=== PATIENT | female | born 1945 | race Caucasian/White ===

== ENCOUNTER 2020-02-04 13:09 | Outpatient (CLI) | payer MEDICARE, OTHER, SELFPAY ==
--- NOTE | 2020-02-04 13:18 | XR_ITS ---
WS: [id number] Chest 2 views, 02/04/2020 Clinical Data: CHRONIC COUGH/BRONCHITIS Comparison: None. Findings: No nodules, masses or effusions are seen. The heart is normal. The pulmonary vascularity is not increased. No pneumonia or pneumothorax is seen. The aortic arch and descending aorta show mild tortuosity. XR/XR chest 2V* [id number] Impression: Atherosclerosis.
== END 2020-02-04 13:10 | disposition home or self-care (01) ==
LOC: RAD 13:17
PROVIDERS: PCP Electrodiagnostic Medicine; Visit Provider Electrodiagnostic Medicine
DX: R05 Cough (principal); J42 Unspecified chronic bronchitis; I70.90 Unspecified atherosclerosis
CPT/HCPCS: 71046

== ENCOUNTER → 2020-04-11 14:42 | Outpatient (BNVA) | payer MEDICARE, OTHER, SELFPAY | PROVIDERS: PCP Electrodiagnostic Medicine; Visit Provider Nurse Practitioner Family | DX: Z20.828 Contact with and (suspected) exposure to other viral communicable diseases (principal); J06.9 Acute upper respiratory infection, unspecified | CPT/HCPCS: 87635 ==

== ENCOUNTER 2021-06-15 02:32 | Emergency (ER) | payer MEDICARE, OTHER, SELFPAY ==
[2021-06-15 02:36] VITALS: RESP 16; BMI 33.3
--- NOTE | 2021-06-15 02:37 | XRR_ITS ---
PROCEDURE INFORMATION: Exam: XR Right Shoulder Exam date and time: 06/15/2021 2:37 AM Age: 75 years old Clinical indication: Injury or trauma; Fall; Blunt trauma (contusions or hematomas); Right; Patient HX: Patient fell this morning going down basement stairs landing onto RT side. C/O RT shoulder pain. TECHNIQUE: Imaging protocol: XR Right shoulder. Views: 2 or more views. COMPARISON: CR XR chest 2V* [id number] 02/04/2020 1:30 PM FINDINGS: Bones/joints: No acute fracture. No dislocation. Soft tissues: No radiopaque foreign body. XR/XR shoulder RT min 2V* [id number] IMPRESSION: No acute fracture.
--- NOTE | 2021-06-15 02:37 | XRR_ITS ---
PROCEDURE INFORMATION: Exam: XR Right Hip Exam date and time: 06/15/2021 2:37 AM Age: 75 years old Clinical indication: Injury or trauma; Fall; Blunt trauma (contusions or hematomas); Right; Patient HX: Patient fell this morning going down basement stairs landing onto RT side. C/O RT hip pain. TECHNIQUE: Imaging protocol: XR Right hip. Views: 2 or 3 views hip with pelvis when performed. COMPARISON: CT abdomen pelvis wo con [id number] 07/20/2016 3:40 PM FINDINGS: Bones/joints: No dislocation. No acute fracture. Soft tissues: Unremarkable. XR/XR hip RT 2-3V wo/w pel* [id number] IMPRESSION: No acute findings.
--- NOTE | 2021-06-15 02:37 | CTR_ITS ---
PROCEDURE INFORMATION: Exam: CT Cervical Spine Without Contrast Exam date and time: 06/15/2021 2:37 AM Age: 75 years old Clinical indication: Injury or trauma; Fall; Blunt trauma; Patient HX: Patient fell this morning going down basement stairs landing onto RT side. C/O RT side neck pain. TECHNIQUE: Imaging protocol: Computed tomography images of the cervical spine without contrast. Radiation optimization: All CT scans at this facility use at least one of these dose optimization techniques: automated exposure control; mA and/or kV adjustment per patient size (includes targeted exams where dose is matched to clinical indication); or iterative reconstruction. COMPARISON: CT head wo con* [id number] 06/15/2021 3:36 AM RADIATION DOSE METRICS: Total DLP (mGy-cm): 707.24 FINDINGS: Bones/joints: No acute fracture. No malalignment. Discs/Spinal canal/Neural foramina: Degenerative changes including osteophytes endplate spurring and facet hypertrophy. Findings are most prominent at C4-C5 C5-C6 and C6-C7. Lungs: Lung apices are not within the imaged field of view. Soft tissues: Unremarkable. CT/CT cervical spin wo con* [id number] IMPRESSION: No acute cervical fracture.
--- NOTE | 2021-06-15 02:37 | CTR_ITS ---
PROCEDURE INFORMATION: Exam: CT Head Without Contrast Exam date and time: 06/15/2021 2:37 AM Age: 75 years old Clinical indication: Injury or trauma; Fall; Blunt trauma (contusions or hematomas); Patient HX: Patient fell this morning going down basement stairs landing onto RT side. States hit head. C/O pain. TECHNIQUE: Imaging protocol: Computed tomography of the head without contrast. Radiation optimization: All CT scans at this facility use at least one of these dose optimization techniques: automated exposure control; mA and/or kV adjustment per patient size (includes targeted exams where dose is matched to clinical indication); or iterative reconstruction. COMPARISON: No relevant prior studies available. RADIATION DOSE METRICS: Total DLP (mGy-cm): 779.34 FINDINGS: Brain: There is cortical atrophy. Lopez-white matter differentiation is preserved.Periventricular and deep white matter hypodensities compatible with chronic microvascular ischemic changes. No edema, mass effect or midline shift. No acute intracranial hemorrhage. Cerebral ventricles: No ventriculomegaly. Paranasal sinuses: Visualized sinuses are unremarkable. No fluid levels. Mastoid air cells: No mastoid effusion. Bones/joints: No acute fracture. Soft tissues: Unremarkable. CT/CT head wo con* [id number] IMPRESSION: No acute intracranial abnormality.
--- NOTE | 2021-06-15 02:41 | W.ED.FALL ---
HPI - Fall General: Chief Complaint: Fall Stated Complaint: FALL Time Seen by Provider: 06/15/21 02:34 Source: patient and EMS Mode of arrival: EMS Limitations: no limitations History of Present Illness: 75-year-old female states she fell roughly 3 hours ago. States she fell down a step on her basement landed on her right side states she had right shoulder right hip and right neck pain also states that she did hit her head denies any loss of consciousness patient was amatory at the scene when EMS arrived she is full range of motion denies any chest or abdominal pain. complaint: fall Onset (ago): hour(s) Associated symptoms-after fall: Reports headache(s) and neck pain; Denies abdominal pain or chest pain Review of Systems Const: Denies: fever(s), chills, body aches or change in appetite Eyes: Denies: blurry vision or eye discomfort ENMT: Denies: throat pain or dental pain Card: Denies: chest pain Resp: Denies: dyspnea GI: Denies: abdominal pain, nausea, vomiting or diarrhea : Denies: dysuria Musc: Reports: neck pain and extremity pain Skin/Breast: Denies: rash Neuro: Reports: headache(s) Psych: Denies: depression Marcelo/Lymph: Denies: easy bruising All/Imm: Denies: urticaria PFSH ED PFSH: Medical History Diabetes HTN (hypertension) Hyperlipidemia Surgical History History of knee replacement Social History Smoking and tobacco status: never smoked History of recent travel: No Physical Exam Const: COMMON NORMALS: no acute distress, patient oriented x3 and healthy appearing HENMT: COMMON NORMALS: normocephalic and atraumatic HEAD & SCALP: normocephalic and atraumatic Eye: COMMON NORMALS: Equal, round and reactive pupils present and EOMs intact bilaterally PUPIL: Yes Equal, round and reactive pupils present Neck/C-Spine: COMMON NORMALS: full ROM OTHER: Right-sided neck tenderness Chest: COMMONS NORMALS: normal inspection of the chest and normal palpation of entire chest wall Resp: COMMON NORMALS: normal respiratory effort, No retractions, No use of accessory muscles and clear to auscultation bilaterally AUSCULTATION: clear to auscultation bilaterally Cardio: COMMON NORMALS: regular rate, regular rhythm and No murmurs present (Cardio) RATE: regular rate RHYTHM: regular rhythm GI: COMMON NORMALS: Normal to inspection, nondistended, normoactive bowel sounds present, Soft to palpation, non-tender and no masses PALPATION: Yes Soft to palpation Extremity: COMMON NORMALS: normal to inspection and full ROM NARRATIVE EXTREMITY EXAM: Slight tenderness over right hip and shoulder Neuro: COMMON NORMALS: patient oriented x3, moves all extremities and no focal motor deficits Psych: COMMON NORMALS: mental status grossly normal, Normal thought process present and cooperative THOUGHT PROCESS: Normal thought process present Skin: COMMON NORMALS: no rashes or lesions noted and no wounds GENERAL SKIN EXAM: no rashes or lesions noted Course Vital Signs: Vital signs: Vital Signs Respiratory Rate 16 06/15/21 02:36 MDM - Fall Medical Decision Making Patient presents here with scapular fracture from a fall. She has no other injuries from the fall other imaging is all normal patient has no signs of hip fracture she is able ambulate here she is stable for discharge will place her on pain meds. She understands agrees to plan. Lab Data Radiology Impressions Cervical Spine CT 06/15/21 02:37 IMPRESSION: No acute cervical fracture. Head CT 06/15/21 02:37 IMPRESSION: No acute intracranial abnormality. Hip/Pelvis X-Ray 06/15/21 02:37 IMPRESSION: No acute findings. Shoulder X-Ray 06/15/21 02:37 IMPRESSION: No acute fracture. Chest CT 06/15/21 03:24 IMPRESSION: 1. Minimally displaced superomedial right scapular body fracture seen on sagittal image 53. 2. Indeterminate lesion in the posterior right hepatic lobe measuring 15 mm on axial image 43, further evaluation with nonemergent MRI liver protocol may be helpful for further characterization. Imaging Data CT Head: Radiologist's impression: IMPRESSION: No acute intracranial abnormality. CT Chest: Radiologist's impression: IMPRESSION: 1. Minimally displaced superomedial right scapular body fracture seen on sagittal image 53. 2. Indeterminate lesion in the posterior right hepatic lobe measuring 15 mm on axial image 43, further evaluation with nonemergent MRI liver protocol may be helpful for further characterization. Other CT: Radiologist's impression: IMPRESSION: No acute cervical fracture. Xray Ortho: Radiologist's impression: XR/XR hip RT 2-3V wo/w pel* [id number] IMPRESSION: No acute findings. Discharge Plan Discharge Patient Disposition: Home Clinical Impression: Fall Qualifiers: Encounter type: initial encounter Qualified Code(s): W19.XXXA - Unspecified fall, initial encounter Fracture of right scapula Qualifiers: Encounter type: initial encounter Scapula location: body Fracture type: closed Fracture alignment: nondisplaced Qualified Code(s): S42.114A - Nondisplaced fracture of body of scapula, right shoulder, initial encounter for closed fracture Condition: Stable Prescriptions: New hydrocodone-acetaminophen 5-325 mg tablet 1 tab PO Q6H PRN (Reason: pain) Qty: 14 0RF naproxen [Naprosyn] 500 mg tablet 500 mg PO BID PRN (Reason: pain) Qty: 20 0RF No Action irbesartan 150 mg tablet 150 mg PO DAILY 0RF hydrochlorothiazide 12.5 mg tablet 12.5 mg PO DAILY 0RF glimepiride 2 mg tablet 2 mg PO QAM 0RF Rx Instructions: administer with breakfast pravastatin 40 mg tablet 40 mg PO DAILY 0RF metoprolol succinate 50 mg tablet extended release 24 hr 50 mg PO DAILY 0RF doxylamine succinate 25 mg tablet 25 mg PO Q6H PRN0RF Benefiber Clear SF (dextrin) 3 gram/3.5 gram powder in packet 1.5 g PO BID 0RF Rx Instructions: mix into at least 4 oz water or juice before administering Discharge Orders: Discharge ED (Routine); Ordered 06/15/21 Ordered By: Emmy John Referrals: Kevin Guzman DO [Primary Care Provider] - 1-3 days Discharge Diet: Advance as tolerated Discharge Activity: Resume usual activity Patient Instructions: Scapular Fracture (ED), Opioid Safety Coding Level of Care Code ED Centerless Grinder Set Up Operator for Cesar Fwd Exam Comprehensive
--- NOTE | 2021-06-15 02:47 | PC.NURSE ---
patient received s/p fall down 13 steps, states was walking in a dark hallway and took a wrong turn and hit the steps, denies dizziness prior to fall. reports pain to right side with muscle twitching. PMS intact. speech clear, sentences complete. A&Ox4, respirations even equal and unlabored.
--- NOTE | 2021-06-15 03:24 | CTR_ITS ---
PROCEDURE INFORMATION: Exam: CT Chest Without Contrast; Diagnostic Exam date and time: 06/15/2021 3:24 AM Age: 75 years old Clinical indication: Injury or trauma; Fall; Blunt trauma (contusions or hematomas); Patient HX: Patient fell this morning going down basement stairs landing onto RT side. C/O RT anterior/lateral rib pain. TECHNIQUE: Imaging protocol: Diagnostic computed tomography of the chest without contrast. Radiation optimization: All CT scans at this facility use at least one of these dose optimization techniques: automated exposure control; mA and/or kV adjustment per patient size (includes targeted exams where dose is matched to clinical indication); or iterative reconstruction. COMPARISON: CR XR chest 2V* [id number] 02/04/2020 1:30 PM RADIATION DOSE METRICS: Total DLP (mGy-cm): 1178.4 FINDINGS: Lungs: No consolidation. No masses. Pleural spaces: Unremarkable. No pneumothorax. No pleural effusion. Heart: No cardiomegaly. No pericardial effusion. Aorta: No aortic aneurysm. Lymph nodes: Unremarkable. No enlarged lymph nodes. Diaphragm: Small hiatal hernia. Liver: Indeterminate lesion in the posterior right hepatic lobe measuring 15 mm on axial image 43. 10 mm cyst in the right hepatic lobe, no follow up necessary. Fatty liver. Bones/joints: Minimally displaced superomedial right scapular body fracture seen on sagittal image 53. No acute displaced rib fractures. Soft tissues: Unremarkable. CT/CT chest con [id number] IMPRESSION: 1. Minimally displaced superomedial right scapular body fracture seen on sagittal image 53. 2. Indeterminate lesion in the posterior right hepatic lobe measuring 15 mm on axial image 43, further evaluation with nonemergent MRI liver protocol may be helpful for further characterization.
[2021-06-15] MEDS: HYDROcodone-acetaminophen 7.5-325 mg Tablet 1 TAB PO (03:55)
== END 2021-06-15 05:35 | disposition home or self-care (01) ==
PROVIDERS: Emergency Provider Emergency Medicine; PCP Electrodiagnostic Medicine
DX: S42.114A Nondisplaced fracture of body of scapula, right shoulder, initial encounter for closed fracture (principal); E11.9 Type 2 diabetes mellitus without complications; I10 Essential (primary) hypertension; E78.5 Hyperlipidemia, unspecified
CPT/HCPCS: 70450; 71250; 72125; 73030; 73502; 99283

== ENCOUNTER 2021-07-17 10:50 | Outpatient (CLI) | payer MEDICARE, OTHER, SELFPAY ==
--- NOTE | 2021-07-17 11:40 | XRR_ITS ---
PROCEDURE INFORMATION: Exam: XR Right Shoulder Exam date and time: 07/17/2021 11:40 AM Age: 75 years old Clinical indication: Injury or trauma; Fall; Blunt trauma (contusions or hematomas); Shoulder; Right; Injury date: 06/14/21; Additional info: Nondisplaced FX of body of scapula TECHNIQUE: Imaging protocol: XR Right shoulder. Views: 2 or more views. COMPARISON: CR (CHEST, ) 06/15/2021 3:12 AM FINDINGS: Bones/joints: There is faint visualization of a nondisplaced through the body of the scapula which was identified on previous CT scan. The glenohumeral joint and proximal humerus are unremarkable. Soft tissues: Normal. XR/XR shoulder RT min 2V* [id number] IMPRESSION: Nondisplaced fracture of the body of the scapula.
== END 2021-07-17 10:51 | disposition home or self-care (01) ==
PROVIDERS: PCP Electrodiagnostic Medicine; Visit Provider Electrodiagnostic Medicine
DX: S42.114A Nondisplaced fracture of body of scapula, right shoulder, initial encounter for closed fracture (principal); X58.XXXA Exposure to other specified factors, initial encounter
CPT/HCPCS: 73030

== ENCOUNTER 2021-08-15 11:43 | Outpatient (CLI) | payer MEDICARE, OTHER, SELFPAY ==
--- NOTE | 2021-08-15 11:51 | MM_ITS ---
WS: [id number] SCREENING 3D TOMOSYNTHESIS DIGITAL MAMMOGRAM WITH CAD HISTORY: SCREENING COMPARISON: 03/02/2019 and 02/21/2017 Bilateral CC and MLO views submitted. Computer aided detection analyzed. Breast composition: The breasts are almost entirely fatty. There is a new well-circumscribed high den sity nodule measuring 5 mm the mid RIGHT breast at 9:00. The remaining breasts are negative. MM/[place] [id number] IMPRESSION: BI-RADS: 0-Incomplete: Need additional imaging evaluation FOLLOW UP: Need Additional Imaging Recommend RIGHT breast ultrasound along the 9:00 axis.
== END 2021-08-15 11:44 | disposition home or self-care (01) ==
LOC: RAD 11:48
PROVIDERS: PCP Electrodiagnostic Medicine; Visit Provider Electrodiagnostic Medicine
DX: Z12.31 Encounter for screening mammogram for malignant neoplasm of breast (principal)
CPT/HCPCS: 77063; 77067

== ENCOUNTER 2021-09-01 09:55 | Outpatient (CLI) | payer MEDICARE, OTHER, SELFPAY ==
--- NOTE | 2021-09-01 10:07 | US_ITS ---
WS: [id number] ULTRASOUND RIGHT BREAST HISTORY: RIGHT BREAST MASS 9 O'CLOCK AXIS COMPARISON: 08/15/2021 mammogram. TECHNIQUE: 2-D and Doppler. Along the 9:00 axis, 3 cm from the nipple is a small benign cyst measuring 5 x 5 x 3 mm. No increased vascularity. Mild through transmission. Corresponds in location and size to the mammographic abnorma lity. US/US breast RT limited* [id number] IMPRESSION: BI-RADS: 2-Benign FOLLOW-UP: 1 Year Follow-up Mammographic abnormality corresponds to a simple cyst by ultrasound.
== END 2021-09-01 09:56 | disposition home or self-care (01) ==
LOC: RAD 09:56
PROVIDERS: PCP Electrodiagnostic Medicine; Visit Provider Electrodiagnostic Medicine
DX: N63.15 Unspecified lump in the right breast, overlapping quadrants (principal)
CPT/HCPCS: 76642

== ENCOUNTER → 2022-02-05 09:20 | Outpatient (BNVA) | payer MEDICARE, OTHER, SELFPAY | PROVIDERS: PCP Electrodiagnostic Medicine; Visit Provider Internal Medicine Pulmonary Disease | DX: R05.8 Other specified cough (principal); T78.40XA Allergy, unspecified, initial encounter; R06.02 Shortness of breath; R09.82 Postnasal drip | CPT/HCPCS: 36415; 82785; 85025; 85651; 86003; 86140; 99204 ==

== ENCOUNTER 2022-03-06 15:49 | Outpatient (CLI) | payer MEDICARE, OTHER, SELFPAY ==
--- NOTE | 2022-03-06 16:30 | CT_ITS ---
WS: [id number] CT CHEST CT-HIGH RESOLUTION, NONCONTRAST. HISTORY: Interstitial lung disease. Technique: High-resolution chest CT is performed in inspiration, expiration, supine and prone positio laura. All CT scans at [facility] use at least one of these dose optimization techniques: automated exposure control; mA and/or kV adjustment per patient size (includes targeted exams where dose is mat ched to clinical indication); or iterative reconstruction. DLP: 2663.51 mGy.cm COMPARISON: 06/15/2021 Findings: Mild pulmonary hyperinflation. No mass or pneumonia. Subsegmental atelectasis along the RIG HT minor fissure. No pericardial or pleural effusions. No adenopathy. Very mild atherosclerosis aorta . On the high-resolution imaging there is no bronchiectasis or honeycombing. Mild scattered areas of gr oundglass and mosaic attenuation on the expiratory sequence. There is very mild air trapping in all l obes. More significant air trapping noted at the lingula. Stable 8 mm cyst RIGHT lobe of the liver. Gallbladder is mildly contracted. CT/CT chest wo con [id number] Impression: 1. No honeycombing or bronchiectasis. 2. Very mild scattered mosaic attenuation and air trapping. Consider mild hype rsensitivity pneumonitis, bronchiolitis and thromboembolic disease.
== END 2022-03-06 15:50 | disposition home or self-care (01) ==
LOC: RAD 15:49
PROVIDERS: PCP Electrodiagnostic Medicine; Visit Provider Internal Medicine Pulmonary Disease
DX: J84.9 Interstitial pulmonary disease, unspecified (principal); R06.02 Shortness of breath; R05.8 Other specified cough
CPT/HCPCS: 71250

== ENCOUNTER 2022-03-15 13:19 | Outpatient (CLI) | payer MEDICARE, OTHER, SELFPAY | END 2022-03-15 13:20 | disposition home or self-care (01) | LOC: RT 13:21 | PROVIDERS: PCP Family Medicine; Visit Provider Internal Medicine Pulmonary Disease | DX: R06.02 Shortness of breath (principal) | CPT/HCPCS: 94010; 94618; 94729 ==

== ENCOUNTER → 2022-03-21 08:43 | Outpatient (BNVA) | payer MEDICARE, OTHER, SELFPAY | PROVIDERS: PCP Electrodiagnostic Medicine; Visit Provider Internal Medicine Pulmonary Disease | DX: R06.02 Shortness of breath (principal); R05.8 Other specified cough; R09.82 Postnasal drip; R06.2 Wheezing | CPT/HCPCS: 99214 ==

== ENCOUNTER 2022-05-10 13:53 | Outpatient (CLI) | payer MEDICARE, OTHER, SELFPAY ==
--- NOTE | 2022-05-10 14:00 | XR_ITS ---
WS: [id number] DEXA (DUAL ENERGY X-RAY ABSORPTIOMETRY) Bone mineral density was performed using a [employer] machine. HISTORY: POSTMENOPAUSAL COMPARISON: 08/08/2018 Lumbar spine BMD (L1-L4): 1.344 T score: 1.2 Z score: 2.3 Total hip BMD: Left: 1.074 g/cm2. T score: 0.5 Z score: 1.9 Right: 1.062 g/cm2. T score: 0.4 Z score: 1.8 10 year probability of a major osteoporotic fracture is 15.4%. Compared to the prior study from 08/08/2018. Lumbar spine bone mineral density has increased by 17.9%. Bilateral hips bone mineral density has increased by 3.1%. XR/XR DEXA axial skeleton* 01013 IMPRESSION: NORMAL BONE MINERAL DENSITY based upon the WHO classification for females. Significant increase in bone mineral density in the lumbar spine and hips since the prior study. The bone mineral density in the lumbar spine increase may be falsely elevated due to increasing sclerosis and L2 and L3.
== END 2022-05-10 13:54 | disposition home or self-care (01) ==
LOC: RAD 13:55
PROVIDERS: PCP Electrodiagnostic Medicine; Visit Provider Electrodiagnostic Medicine
DX: Z78.0 Asymptomatic menopausal state (principal)
CPT/HCPCS: 77080

== ENCOUNTER 2022-06-15 08:41 | Outpatient (CLI) | payer MEDICARE, OTHER, SELFPAY ==
[2022-06-15 09:26] VITALS: BMI 32.5
--- NOTE | 2022-06-15 09:29 | NMCV_ITS ---
NM priyanka perf SPECT r/s* [id number] Gladys Storey Age: 76 Gender: F : 1945 Exam Date: 06/15/2022 09:29 Ordering Phys: Kevin Guzman DO Technologist: VAMSHI Puga Exam Location: [facility] [place] Indications: SHORTNESS OF BREATH STRESS TEST [facility] IMAGE PROTOCOL Rest/Stress 1 Lexiscan Day Radiopharmaceutical Dose (mCi) Administration Site Administered by Rest: Tc-99m 10.8 IV VAMSHI Sánchez Sestamibi Stress:Tc-99m 32.4 IV VAMSHI Sánchez Sestamibi Rest: 15-Jun-2022 60 Discovery 630 Stress: 15-Jun-2022 30 Discovery 630 0.4mg Lexiscan. Images obtained in supine and prone position. SPECT RESULTS Technical Quality: Excellent Raw Data Analysis: Normal Image Corrections: No attenuation or motion correction applied Summed Stress Score: 1 Summed Rest Score: 0 Summed Difference Score: 1 PERFUSION FINDINGS There is a small in size, reversible perfusion defect in the inferolateral wall. This is consistent with small sized area of ischemia in the left circumflex artery territory. FUNCTIONAL RESULTS (calculated via Gated SPECT) Stress Image LV EF (%): 83 Stress EDV (mL):69 TID: 0.68 Stress ESV (mL):12 FUNCTIONAL FINDINGS: There is normal left ventricular systolic function. IMPRESSIONS 1. Abnormal myocardial perfusion imaging with small sized area of ischemia in the left circumflex artery territory. 2. LV systolic function is normal Osito Chow MD (Electronically Signed) Final Date: 16 June 2022 10:33 S
--- NOTE | 2022-06-15 09:29 | ECG_ITS ---
[facility] Test Date: 2022-06-15 Pat Name: Gladys Storey Department: Room: Gender: Female Cleaners: : 1945 Requested By: Kevin Reddy Order Number: [id number] Rocio MD: Osito Chow M.D. Interpretive Statements NAME OF STUDY: LEXISCAN SESTAMIBI STRESS TEST INDICATION: [davsi, ] Procedure: At the baseline, the blood pressure was 112/68 mmHg with a heart rate of 45 bpm. The electrocardiogram showed sinus bradycardia, normal axis with normal ST and T's. The Lexiscan was infused over a period of 20 seconds. A total of 0.4 mg of Lexiscan was infused. The stress phase was continued for a total of 5 minutes. Heart rate was at the end of stress phase was 68 bpm and a blood pressure of 117/65 mmHg. The EKG at the peak infusion revealed normal sinus rhythm with no significant ST-T wave changes. Sestamibi was injected 20 seconds after the Lexiscan infusion. Blood pressure at the end of recovery phase was 148/65 mmHg with a heart rate of 60 bpm. Conclusion: 1. Normal EKG response to Lexiscan infusion 2. No Lexiscan induced chest pain or cardiac arrhythmia. 3. Normal blood pressure and heart rate response. 4. Sestamibi/sestamibi perfusion scan pending; see separate report. Electronically Signed On 07-07-2022 22:58:11 CYTOTECHNOLOGIST/HISTOTECHNOLOGIST by Osito Chow M.D. [email or web address]
[2022-06-15] MEDS: regadenoson 0.4 Mg/5 ml Syringe IVP (10:56)
[2022-06-15] MEDS: ondansetron 2 mg/ML SDV 2 mL 4 MG IVP (10:56)
[2022-06-15 11:14] VITALS: BP 112/68; PULSE 58
== END 2022-06-15 08:42 | disposition home or self-care (01) ==
LOC: CDL 08:43
PROVIDERS: PCP Electrodiagnostic Medicine; Visit Provider Electrodiagnostic Medicine
DX: R06.89 Other abnormalities of breathing (principal)
CPT/HCPCS: 36415; 78452; 93017; 96374; 96375; A9500; J2405; J2785

== ENCOUNTER 2022-09-24 14:01 | Outpatient (CLI) | payer MEDICARE, OTHER, SELFPAY ==
--- NOTE | 2022-09-24 14:09 | MM_ITS ---
WS: [id number] BILATERAL 3D TOMOSYNTHESIS DIGITAL DIAGNOSTIC MAMMOGRAPHY WITH CAD CLINICAL INFORMATION: RT BREAST PAIN HISTORY: History of RIGHT breast cyst COMPARISON: August 15, 2021 TECHNIQUE: Bilateral CC, MLO, and ML views. FINDINGS: Scattered fibroglandular densities bilaterally. Previously described 5 mm ovoid nodule in the RIGHT c entral breast is unchanged since August 15, 2021. Suspect previously demonstrated to represent an inci dental simple cyst. No other suspicious abnormalities. No suspicious focal mass, asymmetry, calcifications, or architectural distortion. No evidence of marry gnancy. MM/[place] [id number] IMPRESSION: BI-RADS: 2-Benign FOLLOW UP: 1 Year Follow-up Recommend return to annual screening mammography.
== END 2022-09-24 14:02 | disposition home or self-care (01) ==
LOC: RAD 14:05
PROVIDERS: PCP Electrodiagnostic Medicine; Visit Provider Electrodiagnostic Medicine
DX: N64.4 Mastodynia (principal); N63.0 Unspecified lump in unspecified breast
CPT/HCPCS: 77062; 77063; 77067; G0279

== ENCOUNTER → 2022-10-01 08:42 | Outpatient (BNVA) | payer MEDICARE, OTHER, SELFPAY | PROVIDERS: PCP Electrodiagnostic Medicine; Visit Provider Nurse Practitioner Family | DX: Z20.822 Contact with and (suspected) exposure to COVID-19 (principal) | CPT/HCPCS: 87426 ==

== ENCOUNTER → 2023-03-11 11:47 | Outpatient (BNVA) | payer MEDICARE, OTHER, SELFPAY | PROVIDERS: PCP Electrodiagnostic Medicine; Visit Provider Nurse Practitioner Family | DX: J02.9 Acute pharyngitis, unspecified (principal); R05.9 Cough, unspecified | CPT/HCPCS: 71046; 87071; 87400; 87426; 87880 ==

== ENCOUNTER → 2023-06-18 14:11 | Outpatient (BNVA) | payer MEDICARE, OTHER, SELFPAY | PROVIDERS: PCP Electrodiagnostic Medicine; Visit Provider Nurse Practitioner Family | DX: L57.8 Other skin changes due to chronic exposure to nonionizing radiation (principal); D22.4 Melanocytic nevi of scalp and neck; L81.4 Other melanin hyperpigmentation; L82.1 Other seborrheic keratosis; Z80.8 Family history of malignant neoplasm of other organs or systems | CPT/HCPCS: 99213 ==

== ENCOUNTER 2023-09-26 09:30 | Outpatient (CLI) | payer MEDICARE, OTHER, SELFPAY ==
--- NOTE | 2023-09-26 09:35 | MM_ITS ---
WS: [id number] Bilateral screening 3D tomosynthesis digital mammogram, 09/26/2023 Clinical Data: SCREENING Comparison: 09/24/2022, 08/15/2021, 03/02/2019, 02/21/2017, 02/15/2016, 01/10/2015, 06/12/2011, 04/25/2010, 03/17/2009. Findings: The breast parenchymal pattern shows fibroglandular tissue. No spiculated masses or clustered calcifi cations are seen. There are no secondary signs of carcinoma. Mole markers are on both breasts. MM/[place] [id number] Impression: 1. Negative bilateral mammogram unchanged. 2. Recommend annual screening mammograms. BIRADS: 2-Benign FOLLOW UP: 1 Year Follow-up The CAD cloth checker was used.
== END 2023-09-26 09:31 | disposition home or self-care (01) ==
LOC: RAD 09:30
PROVIDERS: PCP Electrodiagnostic Medicine; Visit Provider Electrodiagnostic Medicine
DX: Z12.31 Encounter for screening mammogram for malignant neoplasm of breast (principal)
CPT/HCPCS: 77063; 77067

== ENCOUNTER → 2024-06-18 09:34 | Outpatient (BNVA) | payer MEDICARE, OTHER, SELFPAY | PROVIDERS: PCP Electrodiagnostic Medicine; Visit Provider Nurse Practitioner Family | DX: L57.8 Other skin changes due to chronic exposure to nonionizing radiation (principal); D22.4 Melanocytic nevi of scalp and neck; L81.4 Other melanin hyperpigmentation; L82.1 Other seborrheic keratosis; Z80.8 Family history of malignant neoplasm of other organs or systems; D48.5 Neoplasm of uncertain behavior of skin | CPT/HCPCS: 11102; 99213 ==

== ENCOUNTER 2024-10-01 09:34 | Outpatient (CLI) | payer MEDICARE, OTHER, SELFPAY ==
--- NOTE | 2024-10-01 09:38 | MM_ITS ---
WS: [id number] BILATERAL SCREENING DIGITAL TOMOSYNTHESIS MAMMOGRAM WITH CAD HISTORY: SCREEN COMPARISON: 09/26/2023, 09/24/2022, 08/15/2021 Bilateral CC and MLO views with tomosynthesis and synthetic mammography submitted. Computer aided detection analyzed. Breast composition: The breasts are almost entirely fatty. No suspicious masses, microcalcifications or architectural distortion. Density mass measures 5 mm in the central RIGHT breast. This mass has been present since at least 2021. Benign calcifications scattered within each breast. MM/MM [facility] tomosynthesis [id number] IMPRESSION: BI-RADS: 2 - Benign. FOLLOW UP: 1 Year Follow-up
== END 2024-10-01 09:35 | disposition home or self-care (01) ==
PROVIDERS: PCP Electrodiagnostic Medicine; Visit Provider Electrodiagnostic Medicine
DX: Z12.31 Encounter for screening mammogram for malignant neoplasm of breast (principal); R92.313 Mammographic fatty tissue density, bilateral breasts; N64.89 Other specified disorders of breast; R92.1 Mammographic calcification found on diagnostic imaging of breast
CPT/HCPCS: 77063; 77067